=== PATIENT | female | born 1955 | race Caucasian/White ===

== ENCOUNTER 2017-01-09 05:44 | Inpatient (IN) | payer MEDICARE ==
[2017-01-09 06:31] LABS: Prothrombin Time 12.4 SEC (12.0-14.7)
[2017-01-09 06:43] LABS: Lactic Acid - Sepsis 1.3 mmol/L (0.5-2.2)
[2017-01-09 06:46] LABS: ALT (SGPT) 10 U/L (8-55); AST (SGOT) 14 U/L (5-34); Alkaline Phosphatase 124 U/L (40-150); Anion Gap 11 mmol/L (10-20); BUN (Urea Nitrogen) 11 mg/dL (9.8-20.1); Bilirubin, Total 0.4 mg/dL (0.2-1.2); Calc. Creatinine Clearance 0 mL/min (70-130); Calcium 9.2 mg/dL (7.8-10.44); Carbon Dioxide 32 mmol/L (22-29); Chloride 103 mmol/L (98-107); Estimated GFR-MDRD 40; Globulin 3.2 g/dL (2.4-3.5); Magnesium 3.2 mg/dL (1.6-2.6); Protein, Total 6.9 g/dL (6.0-8.3)
[2017-01-09 06:51] LABS: Troponin I 0.011 ng/mL (< 0.028)
[2017-01-09] MEDS ORDERED: Azithromycin 500 MG VIAL ONE (08:09)
[2017-01-09] MEDS ORDERED: cefTRIAXone\\ROCEPHIN 1 GM, Syringe 0.4 ML in Sterile Water 9.6 ML SLOW IVP SCH (08:30)
[2017-01-09] MEDS ORDERED: Nicotine 7 MG PATCH TD SCH (10:00)
--- NOTE | 2017-01-09 10:21 | RAD ---
PORTABLE CHEST: HISTORY: Shortness of breath. COMPARISON: 10/23/16 exam. FINDINGS: Heart size is enlarged. There are postop sternotomy changes with a pacemaker in place. The lungs ar e clear of infiltrates. IMPRESSION: Cardiomegaly. No acute process. POS: [facility]
[2017-01-09] MEDS ORDERED: Morphine 4 MG/ML VIAL ONE (10:24)
[2017-01-09] MEDS ORDERED: Loperamide HCl 2 MG CAP PO PRN (10:55)
[2017-01-09] MEDS ORDERED: Dextrose 50% Abboject 50 ML SYRINGE SLOW IVP PRN (10:55)
[2017-01-09] MEDS ORDERED: Dextrose 5% in Water 1,000 ML IV PRN (10:55)
[2017-01-09] MEDS ORDERED: Ondansetron ODT 4 MG TAB PO PRN (10:55)
[2017-01-09] MEDS ORDERED: Acetaminophen 325 MG TAB PO PRN (10:55)
[2017-01-09] MEDS ORDERED: cefTRIAXone\\ROCEPHIN 1 GM in Sodium Chloride 0.9% 100 ML IVPB SCH (10:55)
[2017-01-09] MEDS ORDERED: Bisacodyl 5 MG TAB PO PRN (10:55)
--- NOTE | 2017-01-09 10:55 | HP ---
HISTORY OF PRESENT ILLNESS: Ms. Lewis is a 61-year-old woman. She came to the ER earlier today, because of increasing shortness of breath, which she has been experimenting for the last 2 day s. She denies any associated fever. Denies any coughing. She was evaluated and was felt to have CO PD exacerbation along with pneumonia. She is being admitted for management. PAST MEDICAL HISTORY: Remarkable for hypertension, diabetes mellitus, coronary artery disease, CHF a nd COPD. PAST SURGICAL HISTORY: Remarkable for CABG, left knee surgery, hysterectomy, carpal tunnel release b ilaterally and lower back laminectomy. ALLERGIES: She has allergy to ROSUVASTATIN. SOCIAL HISTORY: She is an active smoker and she has more than [id number] history of cigarette smok ing. She drinks socially. FAMILY HISTORY: Reviewed and is not contributory. MEDICATIONS: Prior to admission, she was on alprazolam, aspirin 81 mg daily, Coreg, cyclobenzaprine, dextromethorphan, Nexium, Lasix, and gabapentin, ipratropium/albuterol, isosorbide mononitrate, Leve isauro insulin, levofloxacin, nicotine patch, sublingual nitroglycerin, potassium chloride, prednisone, Entresto, and sertraline. REVIEW OF SYSTEMS: CONSTITUTIONAL: Denies any fever. Admits to weakness. HEENT: No headache, no ocular pain, no sore throat, no rhinorrhea, no earache, no epistaxis. NECK: No neck pain, no neck stiffness. CARDIOVASCULAR: Admits to shortness of breath. No chest pain. PULMONARY: Denies coughing. GASTROINTESTINAL: No nausea, no vomiting; however, she has been having diarrhea. MUSCULOSKELETAL: Admits to arthritis. SKIN: No rash, no itching. HEMATOLOGY: No abnormal bleeding, no ecchymosis. LYMPHATIC: No palpable lymphadenopathy, no painful lymphadenopathy. ENDOCRINOLOGY: No heat or cold intolerance. No polyuria, polydipsia or polyphagia. ALLERGIES: No hayfever. PSYCHIATRIC: Admits to anxiety and depression. NEUROLOGICAL: No seizure. GENITOURINARY: No dysuria, no hematuria. PHYSICAL EXAMINATION: GENERAL: At the current time, she is alert, oriented, dyspneic at rest, receiving oxygen via nasal c annula. VITAL SIGNS: Show a temperature of 97.7, pulse rate 89, respiratory rate 24, blood pressure 139/106. HEENT: Her head is normocephalic and atraumatic. Both pupils are equal and reactive. Ears and nose normal. Oral mucosa is moist. Pharyngeal area is clear. NECK: Supple. There is no distention of the jugular vein. No lymphadenopathy felt. Thyroid gland not palpable. There is no carotid bruit. CHEST: Symmetrical with regular S1 and S2. Lungs are clear. LUNGS: Show rhonchi and also wheezing. ABDOMEN: Soft. Bowel sounds heard. I could not appreciate any organomegaly. There is no focal are a of tenderness. EXTREMITIES: Limbs showed no edema. NEUROLOGIC: She moves all extremities. LABORATORY DATA: Chest x-ray reviewed by us, showed bilateral infiltrate and also there is some eval uation of blood vessels suggestive of possible additional CHF: Heart is enlarged and there is also a defibrillator in place. PT is 12.4. Chemistry and electrolytes show sodium of 142, potassium 4.3, chloride 103, CO2 32, BUN 11, creatinine 1.36, glucose 189, lactic acid 1.3, calcium 9.2, magnesium 3 .2, total bilirubin 0.4, AST 14, ALT 10, alkaline phosphatase 124. Troponin is 0.011. BNP to be 172 .6. Total protein 6.9, albumin 3.7, globulin 3.2. TSH 6.834. CBC not available at this time and in fluenza screen is negative. ASSESSMENT AND PLAN: This is a 61-year-old woman with history of hypertension, diabetes me llitus, chronic obstructive pulmonary disease, coronary artery disease, cardiomyopathy status post de fibrillator placement, hypertension, diabetes mellitus who was admitted with increasing shortness of breath. Chest x-ray suggestive of pneumonia and also possible congestive heart failure. The patient is a heavy smoker. She will be admitted to the medical floor. She will be treated for pneumonia, c ongestive heart failure and also chronic obstructive pulmonary disease exacerbation.
[2017-01-09 12:46] LABS: #Lymphocytes 0.7 thou/uL (1.20-3.40); #Monocytes 0.1 thou/uL (0.11-0.59); #Neutrophils 7.7 thou/uL (1.40-6.50); %Eosinophils 0.2 % (0.0-10.0); %Lymphocytes 8.6 % (21.0-51.0); %Monocytes 0.8 % (0.0-10.0); Mean Platelet Volume 8.1 fL (7.4-10.4); Red Blood Cell (RBC) Count 5.08 mill/uL (4.20-5.40); White Blood Cell (WBC) Count 8.5 thou/uL (4.8-10.8)
[2017-01-09 13:09] LABS: Troponin I 0.075 ng/mL (< 0.028)
--- NOTE | 2017-01-09 15:23 | RAD ---
RIGHT FOOT THREE VIEWS: History: Foot pain. FINDINGS: There are calcaneal spurs present. There appears to be some soft tissue swelling in the dorsum of the foot. Degenerative changes of the first metatarsal phalangeal joint. I do not see any signs of fract ure. IMPRESSION: No evidence of fracture. POS: [facility]
[2017-01-09] MEDS: Furosemide 40 MG/4 ML VIAL SLOW IVP SCH (15:52)
--- NOTE | 2017-01-09 15:53 | RAD ---
RIGHT ANKLE THREE VIEWS: History: Ankle pain. FINDINGS: There is an avulsion from the tip of the fibula. I am not entirely certain whether this is old or new . Clinical correlation as to whether the patient has pain in this region. There is no joint effusion. IMPRESSION: 1. Avulsion from the tip of the fibula. I am not certain of the age of this. 2. Calcaneal spurs. POS: [facility]
[2017-01-09 16:06] VITALS: BMI 48.9
[2017-01-09] MEDS: Insulin Regular 300 UNITS/3 ML VIAL SC PRN (17:27)
[2017-01-09] MEDS: Budesonide 0.5 MG/2 ML NEB INH SCH (18:16)
[2017-01-09] MEDS: Mometasone 100 MCG HFA INHALER INH SCH (18:16)
[2017-01-09] MEDS: Carvedilol 6.25 MG TAB PO SCH (20:38)
[2017-01-09] MEDS: methylPREDNISolone Sod Succ/PF 125 MG/2 ML VIAL IVP SCH (20:38)
[2017-01-09] MEDS: Gabapentin 300 MG CAP PO SCH (20:38)
[2017-01-09] MEDS: Sacubitril 24.5 MG/Valsartan 25.5 MG TABLET PO SCH (20:40)
[2017-01-09] MEDS: ALPRAZolam 0.25 MG TAB PO PRN (20:40)
[2017-01-09] MEDS: Acetaminophen/Codeine 30-300mg Tablet PO PRN (20:50)
[2017-01-09] MEDS ORDERED: Non-Formulary Item 1 EACH (Sacubitril/Valsartan [Entresto 24 Mg-26 Mg Tablet] 1 EACH) PO SCH (21:00)
[2017-01-09] MEDS: Nicotine 21 MG PATCH TD SCH (21:21)
[2017-01-09] MEDS ORDERED: Oxymetazoline HCl 0.05% ( 15 ML ) NASAL SCH (22:30)
[2017-01-10 02:43] LABS: Bilirubin Negative (Negative); Blood, Urine Negative (Negative); Glucose, Urine (Dipstick) Negative (Negative); Ketone, Urine Negative (Negative); Nitrite Negative (Negative); Protein, Urine (Dipstick) Negative (Neg-Trace); Urobilinogen 0.2 mg/dL (0.2-1.0)
[2017-01-10] MEDS: Furosemide 40 MG/4 ML VIAL SLOW IVP SCH ×2 (06:21→12:32)
[2017-01-10] MEDS: Budesonide 0.5 MG/2 ML NEB INH SCH ×2 (06:55→19:25)
[2017-01-10] MEDS: Mometasone 100 MCG HFA INHALER INH SCH ×2 (06:56→19:25)
[2017-01-10] MEDS ORDERED: LEVEMIR SQ SCH (09:00)
[2017-01-10] MEDS ORDERED: Nicotine 7 MG PATCH TD SCH (09:00)
[2017-01-10] MEDS: Azithromycin 500 MG in Sodium Chloride 0.9% 250 ML 250 ML IVPB SCH (09:08)
[2017-01-10] MEDS: Carvedilol 6.25 MG TAB PO SCH ×2 (09:09→21:01)
[2017-01-10] MEDS: Gabapentin 300 MG CAP PO SCH ×2 (09:09→21:01)
[2017-01-10] MEDS: Sacubitril 24.5 MG/Valsartan 25.5 MG TABLET PO SCH ×2 (09:09→21:01)
[2017-01-10] MEDS: Insulin Detemir 100 UNITS/ML 5 UNITS in Pre-Filled Syringe 1 EACH SC SCH (09:10)
[2017-01-10] MEDS: Aspirin 81 mg Enteric Coated Tablet PO SCH (09:10)
[2017-01-10] MEDS: methylPREDNISolone Sod Succ/PF 125 MG/2 ML VIAL IVP SCH (09:10)
[2017-01-10] MEDS: Enoxaparin Sodium 40 MG/0.4 ML SYRINGE SC SCH (09:11)
[2017-01-10] MEDS: cefTRIAXone\\ROCEPHIN 1 GM, Syringe 0.4 ML in Sterile Water 9.6 ML SLOW IVP SCH (09:11)
[2017-01-10] MEDS: Acetaminophen/Codeine 30-300mg Tablet PO PRN (09:28)
[2017-01-10] MEDS: ALPRAZolam 0.25 MG TAB PO PRN ×2 (09:42→20:40)
[2017-01-10 10:26] LABS: #Lymphocytes 0.9 thou/uL (1.20-3.40); #Monocytes 0.5 thou/uL (0.11-0.59); %Basophils 0.2 % (0.0-1.0); %Eosinophils 0.1 % (0.0-10.0); %Lymphocytes 8.5 % (21.0-51.0); %Monocytes 5.2 % (0.0-10.0); Hematocrit 51.9 % (36.0-47.0); Mean Platelet Volume 8.9 fL (7.4-10.4); Red Blood Cell (RBC) Count 5.42 mill/uL (4.20-5.40); White Blood Cell (WBC) Count 10.5 thou/uL (4.8-10.8)
[2017-01-10 10:47] LABS: ALT (SGPT) 9 U/L (8-55); AST (SGOT) 9 U/L (5-34); Alkaline Phosphatase 115 U/L (40-150); Anion Gap 15 mmol/L (10-20); BUN (Urea Nitrogen) 15 mg/dL (9.8-20.1); Bilirubin, Total 0.3 mg/dL (0.2-1.2); Calc. Creatinine Clearance 101 mL/min (70-130); Calcium 9.3 mg/dL (7.8-10.44); Carbon Dioxide 27 mmol/L (22-29); Chloride 101 mmol/L (98-107); Estimated GFR-MDRD 45; Globulin 3.2 g/dL (2.4-3.5); Magnesium 2.6 mg/dL (1.6-2.6)
[2017-01-10] MEDS ORDERED: traMADol HCl 50 MG TAB PO PRN (12:16)
[2017-01-10] MEDS ORDERED: HYDROcodone/Acetaminophen 5/325 mg Tablet PO PRN ×2 (12:16→14:42)
[2017-01-10] MEDS ORDERED: Sodium Chloride 0.65% Nasal 44 ML BOT EA NARE PRN (12:16)
[2017-01-10] MEDS ORDERED: Acetaminophen 325 MG TAB PO SCH (15:00)
[2017-01-10] MEDS: Fluticasone Propionate Nasal Spray 16 gm Bottle NASAL SCH (15:16)
[2017-01-10] MEDS: HYDROcodone/Acetaminophen 5/325 mg Tablet PO PRN ×2 (15:27→20:40)
--- NOTE | 2017-01-10 16:32 | CON ---
DATE OF CONSULTATION: 01/10/2017 TYPE OF CONSULTATION: Orthopedic Consultation. REQUESTING PHYSICIAN: Mario Cedeño MD REASON FOR CONSULTATION: Avulsion fracture, right lateral malleolus. BRIEF HISTORY OF PRESENT ILLNESS: The patient is a 61-year-old lady who [facility] shortness of breath and cough. While in the emergency room, she tripped and fell, twisting her right ankle. She reports that she felt a pop within the ankle and subsequent lateral pain. X-rays of the foot and ankle were obtained and these are remarkable for a small calca waldo heel spur, but more importantly evidence of a small avulsion fracture from the tip of the latera l malleolus. The patient was placed in a fiberglass splint, and orthopedic consultation requested. PAST MEDICAL HISTORY: Remarkable for hypertension, diabetes, coronary artery disease with a history of heart attack last year, CHF, and COPD. PAST SURGICAL HISTORY: Includes coronary artery bypass graft, left knee surgery, carpal tunnel relea se, lumbar spine surgery, and hysterectomy. MEDICATIONS: Upon admission, the patient had alprazolam, aspirin, Coreg, cyclobenzaprine, dextrometh orphan, Nexium, Lasix, and gabapentin as well as insulin, levofloxacin, a nicotine patch and sublingu al nitroglycerin p.r.n. ALLERGIES: STATINS. SOCIAL HISTORY: Patient is a smoker and has a [id number] history of smoking. She consumes alcohol socially, denies recreational drug use. FAMILY HISTORY: Noncontributory. REVIEW OF SYSTEMS: Denies recent fevers or chills. She does report a history of chronic cough and i ntermittent chest pain. She has some mild stocking distribution dysesthesias. PHYSICAL EXAMINATION: VITAL SIGNS: She was found to have a temperature 98.2 degrees Fahrenheit, a heart rate of 86, respir atory rate of 20 and blood pressure of 128/74. HEENT: Atraumatic, normocephalic. CHEST: As she rests in bed, she was found to have some mild shortness of breath. Chest shows some m ild rhonchi. HEART: Regular rate and rhythm. ABDOMEN: Round. EXTREMITIES: Remarkable for a right lower extremity that did have a fiberglass splint in place. Drew gordon, I took the splint off for exam. She is nontender to palpation at the deltoid ligament or along t he medial malleolus. She is point tender to palpation at the tip of the lateral malleolus and with i nversion stress testing this duplicates her ankle pain. This pain is roughly along the path of the t alofibular ligament. She is minimally tender at the anterior inferior tib-fib ligament. The foot is atraumatic. X-RAYS: Three-view ankle x-ray was obtained; it is remarkable for a minimally displaced avulsion fra cture from the tip of the lateral malleolus. Three view foot x-ray remarkable for some calcaneal malinda l spurring which I believe to be essentially normal finding in a 61-year-old. ASSESSMENT: Patient with nondisplaced avulsion fracture from the tip of the lateral malleolus. PLAN: Today I discussed with the patient that I believe her ankle is stable and that this avulsion i njury really is a reflection of a ligamentous injury. At this time, I believe she could be well care d for in a walker boot and allowed weightbearing as tolerated. I will write for this walker boot to be placed as well as PT orders for walker education using weightbearing as tolerated. I would like t o have patient follow up in my office in approximately 3 weeks for reevaluation.
--- NOTE | 2017-01-10 17:00 | PDOC.PN ---
- Subjective Encounter Start Date: 01/10/17 Encounter Start Time: 12:30 Patient seen and examined. SOB improving. Ankle pain +. No overnight events - Objective Resuscitation Status: Resuscitation Status FULL:Full Resuscitation MAR Reviewed: Yes Vital Signs & Weight: Vital Signs (12 hours) Temp Pulse Resp BP BP Pulse Ox 01/10/17 15:19 98 F 90 20 146/80 H 91 L 01/10/17 15:18 83 22 H 87 L 01/10/17 10:55 98.2 F 82 20 95 01/10/17 10:52 82 20 95 01/10/17 09:09 128/74 01/10/17 09:05 98.2 F 86 20 128/74 95 01/10/17 06:55 88 22 H 96 01/10/17 06:53 88 22 H 96 Weight Admit Weight 285 lb 6 oz Weight 285 lb 6 oz I&O: 01/09/17 01/10/17 01/11/17 06:59 06:59 06:59 Intake Total 480 Output Total 2550 Balance -2069 Result Diagrams: 01/10/17 10:12 01/10/17 10:12 Additional Labs: Accuchecks 01/10/17 01/10/17 15:39 12:04 POC Glucose 248 H 179 H EKG Reviewed by me: Yes (Tele SR) Phys Exam - Physical Examination Constitutional: NAD Respiratory: no wheezing, no rales, no rhonchi Cardiovascular: RRR, no rub no heaves, pulsation Gastrointestinal: soft, non-tender, no distention, positive bowel sounds Musculoskeletal: edema present Rt foot splint + Neurological: non-focal, normal sensation, moves all 4 limbs Psychiatric: normal affect, A&O x 3 Dx/Plan - Plan PT/OT, DVT proph w/SCDs IMPRESSION: 1. Acute hypoxic resp failure due to COPD/CHF exacerbation 2. Acute on Chronic systolic & diastolic HF exacerbation 3. Rt ankle pain/Nondisplaced Avulsion fracture 4. Morbid obesity BMI 49 5. CAD s/p CABG 6. HTN/DM2/HLD/Anxiety/s/p AICD/Tobacco abuse PLAN: * Cont diuretics * Add fluid rest * Change steroids to PO * Cont Atbx * Pain control * Consult Cardio/Pulm in AM * Cont to monitor * labs reviewed * Cont current meds as below * Await Ortho input * Cont PT * Counselled to quit smoking Review of Systems - Review of Systems Constitutional: negative: Fever, Chills, Sweats, Weakness, Malaise Respiratory: negative: Cough, Dry, Shortness of Breath, Hemoptysis, SOB with Excertion, Pleuritic Pain, Sputum, Wheezing Gastrointestinal: negative: Nausea, Vomiting, Abdominal Pain, Diarrhea, Constipation, Melena, Hematochezia Genitourinary: negative: Dysuria, Frequency, Incontinence, Hematuria, Retention , Other - Medications/Allergies Allergies/Adverse Reactions: Allergies Allergy/AdvReac Type Severity Reaction Status Date / Time rosuvastatin calcium Allergy SEVERE Verified 03/24/16 18:36 [From Crestor] MYALGIA venom-wasp protein Allergy GENERALIZED Verified 03/24/16 18:36 [wasp venom protein] SWELLING Medications: Current Medications Acetaminophen (Tylenol) 650 mg PO Q4H PRN PRN Reason: Headache/Fever or Pain Acetaminophen/Codeine Phosphate (Tylenol #3) 1 tab PO Q4H PRN PRN Reason: Moderate Pain (4-6) Last Admin: 01/10/17 09:28 Dose: 1 tab Hydrocodone Bitart/Acetaminophen ([place] 5/325) 1 tab PO Q6H PRN PRN Reason: Severe Pain (7-10) Last Admin: 01/10/17 15:27 Dose: 1 tab Albuterol/Ipratropium (Duoneb) 3 ml NEB [id number] [facility] Last Admin: 01/10/17 15:18 Dose: 3 ml Alprazolam (Xanax) 0.25 mg PO TIDPRN PRN PRN Reason: Anxiety Last Admin: 01/10/17 09:42 Dose: 0.25 mg Aspirin (Ecotrin) 81 mg PO DAILY [facility] Last Admin: 01/10/17 09:10 Dose: 81 mg Bisacodyl (Dulcolax) 10 mg PO DAILYPRN PRN PRN Reason: Constipation Budesonide (Pulmicort Neb Solution) 0.5 mg INH BID-RT [facility] Last Admin: 01/10/17 06:55 Dose: 0.5 mg Carvedilol (Coreg) 6.25 mg PO BID [facility] Last Admin: 01/10/17 09:09 Dose: 6.25 mg Dextrose/Water (Dextrose 50%) 25 gm SLOW IVP PRN PRN PRN Reason: Hypoglycemia Enoxaparin Sodium (Lovenox) 40 mg SC 0900 [facility] Last Admin: 01/10/17 09:11 Dose: 40 mg Fluticasone Propionate (Flonase Nasal [place]) 0 gm NASAL Q24HR [facility] Last Admin: 01/10/17 15:16 Dose: 2 spray Furosemide (Lasix) 40 mg SLOW IVP 0600,1400 [facility] Last Admin: 01/10/17 12:32 Dose: 40 mg Gabapentin (Neurontin) 300 mg PO QAM [facility] Last Admin: 01/10/17 09:09 Dose: 300 mg Gabapentin (Neurontin) 600 mg PO HS [facility] Last Admin: 01/09/17 20:38 Dose: 600 mg Glucagon (Glucagon) 1 mg IM PRN PRN PRN Reason: Hypoglycemia Insulin Detemir 5 units/ (Miscellaneous Medication) 0.05 mls @ 0 mls/hr SC DAILY JERICA PRN Reason: As Directed Last Admin: 01/10/17 09:10 Dose: 0.05 mls Azithromycin 500 mg/ Sodium (Chloride) 250 mls @ 250 mls/hr IVPB 0800 [facility] Last Admin: 01/10/17 09:08 Dose: 250 mls Dextrose/Water (D5w) 1,000 mls @ 0 mls/hr IV .Q0M PRN; As Directed PRN Reason: Hypoglycemia Ceftriaxone Sodium 1 gm/ (Syringe 0.4 ml/ Sterile Water) 10 mls @ 120 mls/hr SLOW IVP 0900 [facility] Last Admin: 01/10/17 09:11 Dose: 10 mls Insulin Human Regular (Humulin R) 0 units SC .MODERATE SLIDING SC PRN PRN Reason: Moderate Correctional Scale Last Admin: 01/09/17 17:27 Dose: 2 unit Loperamide HCl (Imodium) 2 mg PO PRN PRN PRN Reason: Diarrhea/Loose Stools Methylprednisolone Sodium Succinate (Solu-Medrol) 60 mg IVP Q12HR [facility] Last Admin: 01/10/17 09:10 Dose: 60 mg Mometasone Furoate (Asmanex Hfa 100 Mcg) 1 puff INH BID-RT [facility] Last Admin: 01/10/17 06:56 Dose: 1 puff Nicotine (Nicoderm Patch) 21 mg TD Q24HR [facility] Last Admin: 01/09/17 21:21 Dose: Not Given Ondansetron HCl (Zofran Odt) 4 mg PO Q6H PRN PRN Reason: Nausea/Vomiting Pantoprazole Sodium (Protonix) 40 mg PO DAILY [facility] Last Admin: 01/10/17 09:10 Dose: 40 mg Sacubitril/Valsartan (Entresto 24.5 Mg-25.5 Mg Tablet) 1 tab PO BID [facility] Last Admin: 01/10/17 09:09 Dose: 1 tab Sertraline HCl (Zoloft) 100 mg PO DAILY [facility] Last Admin: 01/10/17 09:09 Dose: 100 mg Sodium Chloride ([place] Nasal [place] 0.65%) 0 ml EA NARE TID PRN PRN Reason: Nasal Congestion Sodium Chloride (Flush - Normal Saline) 10 ml IVF Q12HR [facility] Sodium Chloride (Flush - Normal Saline) 10 ml IVF PRN PRN PRN Reason: Saline Flush Last Admin: 01/10/17 12:41 Dose: 10 ml Tramadol HCl (Ultram) 50 mg PO Q4H PRN PRN Reason: Moderate Pain (4-6) Last Admin: 01/10/17 12:32 Dose: 50 mg
[2017-01-10] MEDS: Insulin Regular 300 UNITS/3 ML VIAL SC PRN (18:36)
--- NOTE | 2017-01-10 20:21 | CON ---
DATE OF CONSULTATION: 01/10/2017 REASON FOR CONSULTATION: Heart failure. HISTORY OF PRESENT ILLNESS: Ms. Lewis is a pleasant 61-year-old black female, very well known to myself who comes to the hospital for shortness of breath. She was diagnosed with COPD exacerbation and mild heart failure exacerbation, so Cardiology is being consulted for this. She has been short of breath for about 2-3 days. She was admitted and diagnosed with possible pneumonia and COPD exacerbation. Her BNP was mildly elevated. She was given a couple doses of Lasix and IV steroids, and she states that her breathing is much better. Currently, she states that it is close to normal. In the ER, she tripped and fell and broke her ankle. It is an avulsion fracture of the lateral malleolus of the right ankle and she was evaluated by Orthopedic Surgery and she will get a walking boot and will be treated conservatively. Her fluid status seems to be much improved currently. PAST MEDICAL HISTORY: 1. Hypertension. 2. Diabetes. 3. Coronary artery disease, status post bypass grafting. 4. Ischemic cardiomyopathy. 5. Chronic obstructive pulmonary disease. PAST SURGICAL HISTORY: 1. CABG as well. 2. Left knee surgery. 3. Hysterectomy. 4. Carpal tunnel release, bilateral. 5. Lower back laminectomy. OUTPATIENT MEDICATIONS: Include: 1. Flexeril 20 mg p.o. b.i.d. 2. Xanax 0.25 mg t.i.d. p.r.n. 3. Gabapentin 600 mg at bedtime. 4. Carvedilol 6.25 mg b.i.d. 5. Aspirin 81 a day. 6. Nexium 20 mg a day. 7. Dextromethorphan. 8. Levemir. 9. Imdur 30 mg a day. 10. Lasix 40 mg twice a day. 11. Potassium chloride 10 mEq a day. 12. Sublingual nitro p.r.n. 13. Nicoderm CQ. 15. Zoloft 100 mg a day. 16. Entresto 24/26 b.i.d. ALLERGIES: ROSUVASTATIN. SOCIAL HISTORY: Active smoker, [id number] history. Social alcohol use, no drug use. FAMILY HISTORY: Noncontributory. REVIEW OF SYSTEMS: A 12-point review of systems was done and is all negative unless stated in the history of present illness. PHYSICAL EXAMINATION: VITAL SIGNS: Temperature 98.0, pulse 90, respiration rate 20, satting 91% on 2 liters, blood pressure 146/89. GENERAL: Awake, alert, oriented x3, in no distress. HEENT: Normocephalic, atraumatic. NECK: Supple. LUNGS: Have reduced breath sounds bilaterally. CARDIOVASCULAR: S1, S2, no S3 or S4. No murmurs or rubs. ABDOMEN: Soft. Positive bowel sounds. EXTREMITIES: 1+ edema. SKIN: Warm and dry. LABORATORY WORK: Reviewed. CBC, CMP, and coags were reviewed. Creatinine went from 1.3 to 1.2. Troponin has been in determine range 0.07 high. BNP was 373. TSH was 6.8. UA was unremarkable. Chest x-ray was reviewed. Foot x-ray was reviewed. EKG was reviewed. ASSESSMENT AND PLAN: 1. Acute on chronic systolic dysfunction. Ejection fraction is reduced on last echo with difficult to say how much due to body habitus, but she does have an ischemic cardiomyopathy. We will most likely switch her back to her home dose of Lasix. Her BNP is not something we can follow in the setting of being on Entresto. Clinically, she seems to be more of a chronic obstructive pulmonary disease exacerbation at this time. We will switch back to p.o. Lasix at 40 b.i.d. 2. Continue other medications per primary team. Thank you for letting us to participate in the care of the patient. We will follow. BRE
[2017-01-10] MEDS: Nicotine 21 MG PATCH TD SCH (21:01)
[2017-01-11 05:09] LABS: #Basophils 0.1 thou/uL (0.0-0.2); #Lymphocytes 2.7 thou/uL (1.20-3.40); #Monocytes 0.9 thou/uL (0.11-0.59); #Neutrophils 6.7 thou/uL (1.40-6.50); %Basophils 0.7 % (0.0-1.0); %Eosinophils 0.2 % (0.0-10.0); %Lymphocytes 26.3 % (21.0-51.0); %Monocytes 8.5 % (0.0-10.0); Mean Platelet Volume 9.5 fL (7.4-10.4); Red Blood Cell (RBC) Count 5.22 mill/uL (4.20-5.40); White Blood Cell (WBC) Count 10.4 thou/uL (4.8-10.8)
[2017-01-11 05:41] LABS: Anion Gap 15 mmol/L (10-20); BUN (Urea Nitrogen) 19 mg/dL (9.8-20.1); Calc. Creatinine Clearance 126 mL/min (70-130); Calcium 9.1 mg/dL (7.8-10.44); Carbon Dioxide 26 mmol/L (22-29); Chloride 102 mmol/L (98-107); Estimated GFR-MDRD 59; Magnesium 2.4 mg/dL (1.6-2.6); Phosphorus 3.3 mg/dL (2.3-4.7)
[2017-01-11] MEDS: Furosemide 40 MG/4 ML VIAL SLOW IVP SCH (05:51)
[2017-01-11] MEDS: Budesonide 0.5 MG/2 ML NEB INH SCH (06:46)
[2017-01-11] MEDS: Mometasone 100 MCG HFA INHALER INH SCH (06:51)
[2017-01-11] MEDS ORDERED: predniSONE 20 MG TAB PO SCH (08:00)
[2017-01-11] MEDS: Azithromycin 500 MG in Sodium Chloride 0.9% 250 ML 250 ML IVPB SCH (08:35)
[2017-01-11] MEDS: Sacubitril 24.5 MG/Valsartan 25.5 MG TABLET PO SCH (09:34)
[2017-01-11] MEDS: Gabapentin 300 MG CAP PO SCH (09:34)
[2017-01-11] MEDS: Carvedilol 6.25 MG TAB PO SCH (09:34)
[2017-01-11] MEDS: Aspirin 81 mg Enteric Coated Tablet PO SCH (09:36)
[2017-01-11] MEDS: HYDROcodone/Acetaminophen 5/325 mg Tablet PO PRN ×2 (09:38→14:27)
[2017-01-11] MEDS: ALPRAZolam 0.25 MG TAB PO PRN (09:45)
[2017-01-11] MEDS: cefTRIAXone\\ROCEPHIN 1 GM, Syringe 0.4 ML in Sterile Water 9.6 ML SLOW IVP SCH (10:13)
[2017-01-11] MEDS: Insulin Detemir 100 UNITS/ML 5 UNITS in Pre-Filled Syringe 1 EACH SC SCH (10:14)
--- NOTE | 2017-01-11 10:15 | CON ---
DATE OF CONSULTATION: 01/11/2017 Martha Lewis is a 61-year-old morbidly obese female, 281 pounds, 5 feet 4, BMI 48 who pr esented with a COPD exacerbation, still ongoing tobacco abuse. In the ER, she apparently fell and sustained a fracture of her ankle as noted. Avulsion tip of the f ibula. This morning she says she is feeling better. She is coughing, but no wheezing, orthopnea or PND. Sh sweta has severe limitation to activity. She has been here numerous times in the hospital. MEDICATIONS FROM HOME: I reviewed a list of medication from home, includes Xanax, gabapentin 600, Co reg 6.25, aspirin, Nexium 20. Imdur 30, DuoNeb, Lasix 40, potassium, nitroglycerin, Zoloft 100, Entr esto. ALLERGIES: She has allergies to CRESTOR. PAST MEDICAL HISTORY: CHF, systolic, diastolic, COPD, diabetes, anxiety. PAST SURGICAL HISTORY: Previous surgeries; AICD; bypass, knee, hysterectomy and back. Previous vent , previous intubation, previous trach. PHYSICAL EXAMINATION: GENERAL: She is in no distress. VITAL SIGNS: Sats 94 on 2 liters, respirations 18, temperature 97, blood pressure 140/80. CHEST: Chest revealed decreased breath sounds without any wheezing. CARDIAC: Normal S1-S2. No gallops. ABDOMEN: Soft, no masses. LABORATORY: White count 10,000, H&H 14 and 50, platelet count 193. Electrolytes are normal. X-ray shows cardiomegaly. No obvious infiltrates were seen. IMPRESSION: 1. Respiratory failure, combination of chronic obstructive pulmonary disease exacerbation and conges tive heart failure. 2. Morbid obesity. 3. Tobacco abuse. 4. Polypharmacy. PLAN: She needs an outpatient sleep study. She is to check with her primary administration clerk. She can be discharged home on oral antibiotics. Follow up with Dr. Benitez in the office in 2 weeks.
[2017-01-11 12:31] VITALS: TEMP 98.4
[2017-01-11] MEDS: Enoxaparin Sodium 40 MG/0.4 ML SYRINGE SC SCH (12:51)
[2017-01-11] MEDS ORDERED: Furosemide 20 MG TAB PO SCH (14:00)
[2017-01-11] MEDS ORDERED: Furosemide 40 MG TAB PO SCH (14:00)
[2017-01-11] MEDS: Fluticasone Propionate Nasal Spray 16 gm Bottle NASAL SCH (16:06)
[2017-01-11 16:07] VITALS: BP 129/90
--- NOTE | 2017-01-11 18:58 | PDOC.CTH ---
Cardiology Progress Note - Subjective She is doing better. Breathing is back to baseline. - Objective Vital Signs Temp Pulse Pulse Resp BP BP BP 01/11/17 14:37 81 16 01/11/17 11:05 98.4 F 71 20 130/84 01/11/17 09:50 87 129/90 01/11/17 09:49 72 16 01/11/17 09:34 141/80 H 01/11/17 07:48 97.7 F 71 18 01/11/17 07:47 97.7 F 71 18 141/80 H Pulse Ox Pulse Ox Pulse Ox 01/11/17 14:37 95 01/11/17 11:05 93 L 01/11/17 09:50 84 L 86 L 01/11/17 09:49 96 01/11/17 09:34 01/11/17 07:48 94 L 01/11/17 07:47 94 L Admit Weight 285 lb 6 oz Weight 281 lb 14.4 oz 01/10/17 01/11/17 01/12/17 06:59 06:59 06:59 Intake Total 480 2180 Output Total 2550 3200 Balance -2070 -1020 - Physical Examination General/Neuro: alert & oriented x3, NAD Neck: no JVD present Lungs: unlabored respirations, other: (Decreased breath sounds. ) Heart: RRR Abdomen: NT/ND Extremities: + edema B (1+) - Telemetry Telemetry Rhythm: NSR - Labs Result Diagrams: 01/11/17 04:10 01/11/17 04:10 Troponin/CKMB CK-MB (CK-2) 1.4 ng/mL (0-6.6) 01/09/17 06:15 Troponin I 0.075 ng/mL (< 0.028) H 01/09/17 12:35 - Assessment/Plan 1. Acute on chronic systolic heart failure 2. COPD exacerbation 3. Ischemic CM 4. Pneumonia PLAN: - Abx per primary team. - CV stable. - May discharge at any time from cardiac perspective - Follow up as scheduled in the office.
--- NOTE | 2017-01-12 09:40 | DIS ---
DATE OF ADMISSION: 01/09/2017 DATE OF DISCHARGE: 01/11/2017 DISCHARGE DISPOSITION: Home with home health care through [facility]. Home O2 has been arran d. ALLERGIES: The patient is allergic to CRESTOR and VENOM WASP. DISCHARGE MEDICATIONS: Xanax as needed, aspirin 81 mg daily, azithromycin 250 mg daily for the next 3 days, Carvedilol 6.25 mg b.i.d., Flexeril as needed, Coricidin as needed, Nexium 20 mg daily, Lasix 40 mg twice a day, gabapentin 300 mg daily and 600 mg at bedtime, DuoNeb as needed, Imdur ER 30 mg d aily, Levemir 5 units daily, nicotine patch as directed, sublingual nitroglycerin as needed, potass ium chloride 10 mEq daily, prednisone taper over the next 3-4 days, Entresto one tablet b.i.d., Zoloft 100 mg daily. The patient was seen and examined on the day of discharge. Denies any new complaints. No chest pain , shortness of breath, palpitations. INPATIENT CONSULTANTS: Pulmonary, Dr. Rahman; Cardiology, Dr. Barrow. BRIEF HOSPITAL COURSE: Patient is a 61-year-old white female with morbid obesity with a BMI of 48, c hronic systolic heart failure and COPD, who presented to the emergency room with worsening shortness of breath. Please refer to the history and physical dated 01/09/[address] Cedeño for further detai ls. The patient was admitted to the hospital with the diagnosis of acute hypoxic respiratory failure seco ndary to COPD/CHF exacerbation. She showed good improvement with diuretics. She was evaluated by Ca rdiology and Pulmonary, Dr. Rahman. She was extensively counseled on fluid restriction as well as ivory gement for congestive heart failure. Her chest x-ray was negative for infiltrate. Due to persistent ankle pain, the patient was evaluated by Orthopedic, Dr. Hurst. Conservative management with spl ints and boots were recommended. She has been cleared by consultants for discharge. FINAL DIAGNOSES: 1. Acute hypoxic respiratory failure secondary to chronic obstructive pulmonary disease/congestive h eart failure exacerbation. 2. Acute on chronic systolic/diastolic heart failure exacerbation. 3. Chronic obstructive pulmonary disease exacerbation. 4. Right ankle pain. Patient was found to have nondisplaced avulsion fracture from the tip of the l ateral malleolus on conservative management. 5. Morbid obesity with a BMI of 49. 6. Coronary artery disease, status post coronary artery bypass grafting. 7. Hypertension. 8. Diabetes mellitus type 2. 9. Hyperlipidemia. 10. Anxiety. 11. Ongoing tobacco abuse. The patient was extensively counseled. 12. Status post AICD. 13. Elevated troponin secondary to congestive heart failure. 14. Chronic kidney disease stage 3. 15. Acute kidney injury on chronic kidney disease stage 3, probably secondary to cardiorenal syndrom e. Plan of care was discussed with the patient. She stated understanding. Total time coordinating the discharge of this patient was 37 minutes. SIGNIFICANT LABORATORY DATA AND X-RAY FINDINGS: Blood cultures were negative. Stool for C. diff was negative. X-ray of the ankle as discussed above. Troponin maximum was 0.075, creatinine at dischar ge was 0.97, on admission was 1.36. FOLLOWUP: Follow up with Dr. Benitez, Dr. Barrow and Dr. Hurst as scheduled. Follow up with [facility] care physician Dr. Lay in 1 week.
--- NOTE | 2017-02-05 11:37 | EKG ---
Test Reason : SOB Blood Pressure : / mmHG Vent. Rate : 086 BPM Atrial Rate : 086 BPM P-R Int : 152 ms QRS Dur : 078 ms QT Int : 362 ms P-R-T Axes : 065 -25 076 degrees QTc Int : 433 ms Normal sinus rhythm Possible Left atrial enlargement Low voltage QRS Nonspecific T wave abnormality Leftward axis No STEMI Abnormal ECG Confirmed by SVEN Dougherty, LIGIA ([id number]), deputy editor in chief ZACH WELDON ([id number] on 02/05/2017 11:37:14 AM Referred By: Confirmed By:LIGIA MACHUCA M.D.
== END 2017-01-11 16:20 | disposition home or self-care (01) | DRG 291 ==
LOC: ERS 05:44 → ERHOLD 08:56 → 2NO 15:14
PROVIDERS: ADMIT Hospitalist; ATTEND Hospitalist
PROC: 2W3LX1Z Immobilization of Right Lower Extremity using Splint (ICD-10-PCS; principal; 2017-01-09)
PROC: 5A09357 Assistance with Respiratory Ventilation, Less than 24 Consecutive Hours, Continuous Positive Airway Pressure (ICD-10-PCS; 2017-01-09)
DX: I13.0 Hypertensive heart and chronic kidney disease with heart failure and stage 1 through stage 4 chronic kidney disease, or unspecified chronic kidney disease (principal); J96.01 Acute respiratory failure with hypoxia; I50.23 Acute on chronic systolic (congestive) heart failure; J44.1 Chronic obstructive pulmonary disease with (acute) exacerbation; N17.9 Acute kidney failure, unspecified; Z68.42 Body mass index [BMI] 45.0-49.9, adult; N18.3 Chronic kidney disease, stage 3 (moderate); E66.01 Morbid (severe) obesity due to excess calories; E78.5 Hyperlipidemia, unspecified; F41.9 Anxiety disorder, unspecified; F17.210 Nicotine dependence, cigarettes, uncomplicated; Z95.810 Presence of automatic (implantable) cardiac defibrillator; E11.22 Type 2 diabetes mellitus with diabetic chronic kidney disease; S82.64XA Nondisplaced fracture of lateral malleolus of right fibula, initial encounter for closed fracture; I25.5 Ischemic cardiomyopathy; W01.0XXA Fall on same level from slipping, tripping and stumbling without subsequent striking against object, initial encounter; Y92.230 Patient room in hospital as the place of occurrence of the external cause
CPT/HCPCS: 29515; 36415; 36416; 71010; 80048; 80053; 81003; 82553; 83605; 83735; 83880; 84100; 84443; 84484; 85025; 85610; 87040; 87324; 87449; 93005; 94640; 96365; 96366; 96375; 99406; A4216; G8978-GP-CJ; G8979-GP-CH; J0456; J0696; J1650; J1815; J1940; J2270; J2930; J7050; J7506; J7620; J7626

== ENCOUNTER 2017-07-23 04:08 | Emergency (ER) | payer MEDICARE ==
[2017-07-23] MEDS ORDERED: Ketorolac Tromethamine 30 MG/ML VIAL ONE (05:14)
--- NOTE | 2017-07-23 08:05 | RAD ---
LEFT WRIST 3 VIEWS: Date: 07/23/17 HISTORY: Left arm and wrist pain. Patient fell 3 days ago. FINDINGS: There are arthritic changes of the wrist with degenerative changes of the first carpometacarpal joint space and triscaphe joint. There are no signs of fracture or dislocation. IMPRESSION: No evidence of fracture. POS: [facility]
--- NOTE | 2017-07-23 08:15 | RAD ---
LEFT FOREARM 2 VIEWS: Date: 07/23/17 HISTORY: Patient fell, forearm pain. FINDINGS: There are no signs of fracture or dislocation. IMPRESSION: Negative left forearm. POS: [facility]
--- NOTE | 2017-07-23 08:59 | RAD ---
RIGHT HIP 2 VIEWS: Date: 07/23/17 HISTORY: Right hip pain. Patient fell 3 days ago. FINDINGS: There are arthritic changes of the hip. I do not see any signs of fracture or dislocation. IMPRESSION: No evidence of fracture. POS: [facility]
== END 2017-07-23 06:34 | disposition home or self-care (01) ==
LOC: ERS 04:08
DX: S70.01XA Contusion of right hip, initial encounter (principal); S40.021A Contusion of right upper arm, initial encounter; E11.9 Type 2 diabetes mellitus without complications; I11.0 Hypertensive heart disease with heart failure; I50.9 Heart failure, unspecified; J44.9 Chronic obstructive pulmonary disease, unspecified; I25.10 Atherosclerotic heart disease of native coronary artery without angina pectoris; F32.9 Major depressive disorder, single episode, unspecified; F17.210 Nicotine dependence, cigarettes, uncomplicated; Z79.82 Long term (current) use of aspirin; Z79.899 Other long term (current) drug therapy; W19.XXXA Unspecified fall, initial encounter
CPT/HCPCS: 96372; J1885